=== PATIENT | female | born 1965 | race Two or more races ===

== ENCOUNTER 2024-12-16 14:40 | Outpatient (RCR) | payer OTHER, MEDICAID, SELFPAY ==
--- NOTE | 2024-12-16 21:28 | CTCFLWUP_ITS ---
Patient: KENNETH REED : 1965 Page 3 of 4 FOLLOW UP NOTE DATE OF SERVICE: 12/16/2024 NAME: KENNETH REED ACCOUNT: [id number] : 1965 AGE: 59 INTERVAL HISTORY: She is clinically doing well. Denies any complaints. Denies any cough, chest pain, abdominal pain or leg cramps. Ambulating well. Denies any weight loss or loss of appetite. Has reasonably good energy levels. Since last visit she had CT scan of the chest without contrast which did not show any suspicious nodu les in the lungs as documented below. ONCOLOGY HISTORY: DIAGNOSIS: History of pT2 right-sided renal cell carcinoma. S/p robotic partial right nephrectomy (12/23/2015. 3 mm left lower lobe pulmonary nodule documented on CT scan of the abdomen and pelvis without contras t (09/08/2023) DATE OF DIAGNOSIS: 12/23/2015 STAGE/TNM: Stage 1 clear cell renal carcinoma TREATMENT HISTORY: Care?Plan Start?Date Cycle Day Intent HISTORY OF PRESENT ILLNESS: The patient is a 59-year-old female with following oncology history. 12/23/2015: Ms. Reed had a robotic partial right nephrectomy for renal cell carcinoma. Pathology show ed renal cell carcinoma ET tube, grade 2/4 with negative margins. No lymphovascular invasion. She w as referred to us recently for a follow-up. 09/08/2023: Ms. Reed had CT scan of the abdomen and pelvis without contrast. The CT scan showed a 3 mm pulmonary nodule in the left lower lobe. No metastatic lesions were noted in the abdomen or pelvi s. 05/28/2024: CT scan of the chest without contrast? OTHER MEDICAL HISTORY/CONDITIONS: HTN Gout GERD Hyperlipidemia Arthritis Tubal ligation - 2002 Cholecystectomy - 2004 Back surgery - Fusion T7-8-9 - 2005 Back surgery - Fusion C2-3 - 2015 Partial right nephrectomy - 2016 Left TKA - 2020 FAMILY HISTORY: Cancer?History:?Denies SOCIAL HISTORY: Occupational?History:?Disabled - SNF- [employer] Education?Level:?Completed 9th grade Marital?Status:? 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 allopurinol - 300 mg 1 tab Daily 2. amlodipine - 10 mg 1 tab Daily 3. atorvastatin - 20 mg 1 tab Daily 4. calcitriol - 0.5 mcg 1 Capsule Every other day 5. cetirizine - 10 mg 1 tab Daily 6. magnesium oxide - 400 mg magnesium 2 tab Daily 7. metoprolol succinate - 50 mg 1 tab Daily 8. multivitamin - 1 tab Daily 9. omeprazole - 40 mg 1 Capsule Daily 10. pregabalin - 50 mg 1 Capsule Twice a Day 11. traMADoL - 100 mg 1 tab Daily 12. Vitamin D2 - 1,250 mcg (50,000 unit) 1 Capsule Every 14 Days Medications Last Reconciled by Hali Phan MA on 12/16/2024 ALLERGIES: No Known Drug Allergies REVIEW OF SYSTEMS: A complete 14-point review of systems was performed and is negative except as noted in interval histo ry. PHYSICAL EXAMINATION: VITAL SIGNS: Temperature?98.2, B/P?138/87, Oxygen?Saturation?98% Weight?191?lbs PAIN: 2 - Mild pain ECOG Performance Status: 0 - Asymptomatic and fully active GENERAL APPEARANCE: Appears well, in no apparent distress, appropriately interactive. HEENT: Normocephalic, no temporal wasting, normal conjunctiva, no scleral icterus, normal hearing, li ps without lesions, neck normal range of motion. CARDIOVASCULAR: Not assessed. PULMONARY: Normal respiratory effort, no respiratory distress or use of accessory muscles, speaking i n full sentences, no tachypnea. EXTREMITIES: No pedal edema or cyanosis. SKIN: Normal skin appearance. NEUROLOGIC: Alert and oriented x4. PSHYCHIATRIC: Appropriate affect, mood normal, behavior normal, intact thought and speech. LABORATORY DATA: I have personally reviewed and interpreted each of the patient?s relevant lab tests, abnormal finding s are below: Date ASSESSMENT/PLAN: 1. CT scan of the chest without contrast done on 05/28/2024 did not show any nodules in the lungs as do cumented above.patient is very worried and wants to get scan . will order pet scan to evaluate for an y recurrence . 2. 3 mm left lower lobe pulmonary nodule documented on CT scan of the abdomen and pelvis without cont rast (09/08/2023) 3. History of pT2 right-sided renal cell carcinoma. S/p robotic partial right nephrectomy (12/23/2015 . 1. No specific intervention today. 2. Will see her back in clinic in 6 months with CBC and CMP done and pet scan .. ORDERS: Cbc,cmp,pet scan RETURN TO CLINIC: 6-8 weeks BILLING AND COMPLIANCE: I reviewed external records from providers outside my specialty as summarized above. I spent a total of 50 minutes on this patient?s care on the day of their visit excluding time spent related to any bi lled procedures. This time includes time spent with the patient as well as time spent documenting in the medical record, reviewing patients records and tests, obtaining history, placing orders, communi cating with other healthcare professionals, counseling the patient, family or caregiver, and/or care coordination for the diagnoses above. Electronically Signed by: Jacob Chaney MD T: 9:26 PM CC: PCP: Jonelle Trinh Referring: Jonelle Trinh This document was completed utilizing speech recognition software. Grammatical errors, random word in sertions, pronoun errors, and incomplete sentences are an occasional consequence of this system due t o software limitations, ambient noise, and hardware issues. Any formal questions or concerns about th e content, text or information contained within the body of this dictation should be directly address ed to the provider for clarification.
== END 2024-12-27 23:59 | disposition home or self-care (01) ==
LOC: SCTC 14:40
PROVIDERS: PCP Nurse Practitioner Family; Referring Provider Nurse Practitioner Family; Visit Provider Internal Medicine Hematology & Oncology
DX: Z08 Encounter for follow-up examination after completed treatment for malignant neoplasm (principal); Z85.528 Personal history of other malignant neoplasm of kidney; Z90.5 Acquired absence of kidney
CPT/HCPCS: Q3014

== ENCOUNTER → 2025-01-16 | Outpatient (CLI) | payer OTHER, MEDICAID, SELFPAY ==
--- NOTE | 2025-01-16 08:00 | XR_ITS ---
EXAMINATION: PET/CT FUSION SKULL TO THIGH EXAM DATE AND TIME: January 16, [address] abdomen pelvis September 08, 2023 INDICATIONS: Diagnosis renal cell carcinoma restaging post treatment CTDI:vol (mGy) 7.19 DLP: (mGycm) 657.18 PROCEDURE: 15.73 mCi FDG was administered intravenously To allow for distribution and uptake of radiotracer, the patient was allowed to rest quietly in a shielded room. Imaging was performed on an integrated 16-slice PET/CT scanner, with scanning from the skull base to the mid thigh. Serum blood glucose at the time of the injection was measured 101 mg/dL. CT scanning was performed without oral or intravenous contrast material. FINDINGS: Head and Neck: There is no bonnie hypermetabolism in the neck. The visualized portions of the brain are normal in appearance on CT. Chest: There is no bonnie hypermetabolism in the chest. There are no pulmonary nodules. Abdomen and Pelvis: There is no bonnie hypermetabolism in retroperitoneal or pelvic chains. The spleen is normal in size and FDG avidity. Musculoskeletal: Marrow uptake is within normal range. IMPRESSION: No interval metastatic disease
== END | disposition home or self-care (01) ==
LOC: CDIM 07:39
PROVIDERS: PCP Nurse Practitioner Family; Referring Provider Internal Medicine Hematology & Oncology; Visit Provider Internal Medicine Hematology & Oncology
DX: C64.9 Malignant neoplasm of unspecified kidney, except renal pelvis (principal)
CPT/HCPCS: 78815; A9552

== ENCOUNTER → 2025-01-21 | Outpatient (CLI) | payer OTHER, MEDICAID, SELFPAY ==
--- NOTE | 2025-01-21 13:20 | XR_ITS ---
Examination: Bone densitometry Date and time of exam:January 21, 2025 1338 hrs. Indications: Menopause age 49, history kidney cancer vitamin D to 3 years Technique: Lumbar spine and hip total bone mineralization values of an calculated. Peak reference and age match control results have been displayed. Findings: Lumbar spine total bone mineralization is1.000 gm/cm2. This is 0.4 standard deviations below peak reference. This is 0.8 standard deviations above age-matched controls. Hip total bone mineralization is 0.916 gm/cm2 This is 0.3 standard deviations below peak reference. This is 0.5 standard deviations above age-matched controls Impression: There is normal mineralization based on lumbar spine measurements. There is osteopenia based on hip measurements Lumbar mineralization is decreased 2.6% compared with December 04, 2019 Hip mineralization is decreased 0.8% compared with December 04, 2019
== END | disposition home or self-care (01) ==
PROVIDERS: PCP Nurse Practitioner Family; Referring Provider Internal Medicine Hematology & Oncology; Visit Provider Internal Medicine Hematology & Oncology
DX: M85.88 Other specified disorders of bone density and structure, other site (principal); C64.9 Malignant neoplasm of unspecified kidney, except renal pelvis
CPT/HCPCS: 77080

== ENCOUNTER 2025-02-06 15:10 | Outpatient (RCR) | payer OTHER, MEDICAID, SELFPAY ==
--- NOTE | 2025-03-02 19:19 | CTCFLWUP_ITS ---
Patient: KENNETH REED : 1965 Page 3 of 4 FOLLOW UP NOTE DATE OF SERVICE: 02/06/2025 NAME: KENNETH REED ACCOUNT: [id number] : 1965 AGE: 59 INTERVAL HISTORY: She is clinically doing well. Denies any complaints. Denies any cough, chest pain, abdominal pain or leg cramps. Ambulating well. Denies any weight loss or loss of appetite. Has reasonably good energy levels. Since last visit she had CT scan of the chest without contrast which did not show any suspicious nodules in the lungs as documented below. ONCOLOGY HISTORY: DIAGNOSIS: History of pT2 right-sided renal cell carcinoma. S/p robotic partial right nephrectomy (12/23/2015. 3 mm left lower lobe pulmonary nodule documented on CT scan of the abdomen and pelvis without contrast (09/08/2023) DATE OF DIAGNOSIS: 12/23/2015 STAGE/TNM: Stage 1 clear cell renal carcinoma TREATMENT HISTORY: Care?Plan Start?Date Cycle Day Intent PROLia?60mg?every?6?months 02/27/2025 1 180 Palliative HISTORY OF PRESENT ILLNESS: The patient is a 59-year-old female with following oncology history. 12/23/2015: Ms. Reed had a robotic partial right nephrectomy for renal cell carcinoma. Pathology showed renal cell carcinoma ET tube, grade 2/4 with negative margins. No lymphovascular invasion. She was referred to us recently for a follow-up. 09/08/2023: Ms. Reed had CT scan of the abdomen and pelvis without contrast. The CT scan showed a 3 mm pulmonary nodule in the left lower lobe. No metastatic lesions were noted in the abdomen or pelvis. 05/28/2024: CT scan of the chest without contrast? OTHER MEDICAL HISTORY/CONDITIONS: HTN Gout GERD Hyperlipidemia Arthritis Tubal ligation - 2002 Cholecystectomy - 2004 Back surgery - Fusion T7-8-9 - 2005 Back surgery - Fusion C2-3 - 2015 Partial right nephrectomy - 2016 Left TKA - 2020 FAMILY HISTORY: Cancer?History:?Denies SOCIAL HISTORY: Occupational?History:?Disabled - SNF- [employer] Education?Level:?Completed 9th grade Marital?Status:? 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 allopurinol - 300 mg 1 tab Daily 2. amlodipine - 10 mg 1 tab Daily 3. atorvastatin - 20 mg 1 tab Daily 4. calcitriol - 0.5 mcg 1 Capsule Every other day 5. cetirizine - 10 mg 1 tab Daily 6. magnesium oxide - 400 mg magnesium 2 tab Daily 7. metoprolol succinate - 50 mg 1 tab Daily 8. multivitamin - 1 tab Daily 9. omeprazole - 40 mg 1 Capsule Daily 10. pregabalin - 50 mg 1 Capsule Twice a Day 11. traMADoL - 100 mg 1 tab Daily 12. Vitamin D2 - 1,250 mcg (50,000 unit) 1 Capsule Every 14 Days Medications Last Reconciled by Hali Phan MA on 02/06/2025 ALLERGIES: No Known Drug Allergies REVIEW OF SYSTEMS: A complete 14-point review of systems was performed and is negative except as noted in interval history. PHYSICAL EXAMINATION: VITAL SIGNS: Temperature?98.2, B/P?135/76, Oxygen?Saturation?99% Weight?192?lbs PAIN: 7 - Between severe and very severe pain GENERAL APPEARANCE: Appears well, in no apparent distress, appropriately interactive. HEENT: Normocephalic, no temporal wasting, normal conjunctiva, no scleral icterus, normal hearing, lips without lesions, neck normal range of motion. CARDIOVASCULAR: Not assessed. PULMONARY: Normal respiratory effort, no respiratory distress or use of accessory muscles, speaking in full sentences, no tachypnea. EXTREMITIES: No pedal edema or cyanosis. SKIN: Normal skin appearance. NEUROLOGIC: Alert and oriented x4. PSHYCHIATRIC: Appropriate affect, mood normal, behavior normal, intact thought and speech. LABORATORY DATA: I have personally reviewed and interpreted each of the patient?s relevant lab tests, abnormal findings are below: Date ASSESSMENT/PLAN: 1. CT scan of the chest without contrast done on 05/28/2024 did not show any nodules in the lungs as documented above.patient is very worried and wants to get scan . will order pet scan to evaluate for any recurrence . 2. 3 mm left lower lobe pulmonary nodule documented on CT scan of the abdomen and pelvis without contrast (09/08/2023) 3. History of pT2 right-sided renal cell carcinoma. S/p robotic partial right nephrectomy (12/23/2015. 1. Pet scan is negative 2. Will see her back in clinic in 6 months with CBC and CMP done and pet scan .. 3. Bone desity shows drop in her bone density 4. Will start onprolia after dental clearence ORDERS: Order # Description [id number] Basic Metabolic Panel RETURN TO CLINIC: 6 months BILLING AND COMPLIANCE: I reviewed external records from providers outside my specialty as summarized above. I spent a total of 50 minutes on this patient?s care on the day of their visit excluding time spent related to any billed procedures. This time includes time spent with the patient as well as time spent documenting in the medical record, reviewing patients records and tests, obtaining history, placing orders, communicating with other healthcare professionals, counseling the patient, family or caregiver, and/or care coordination for the diagnoses above. Electronically Signed by: Jacob Chaney MD T: 7:17 PM CC: PCP: Mikel Orellana Referring: Mikel Orellana This document was completed utilizing speech recognition software. Grammatical errors, random word insertions, pronoun errors, and incomplete sentences are an occasional consequence of this system due to software limitations, ambient noise, and hardware issues. Any formal questions or concerns about the content, text or information contained within the body of this dictation should be directly addressed to the provider for clarification.
== END 2025-02-24 23:59 | disposition home or self-care (01) ==
LOC: SCTC 15:10
PROVIDERS: Referring Provider Physical Medicine & Rehabilitation Pain Medicine; Visit Provider Internal Medicine Hematology & Oncology
DX: Z08 Encounter for follow-up examination after completed treatment for malignant neoplasm (principal); Z85.528 Personal history of other malignant neoplasm of kidney; Z90.5 Acquired absence of kidney
CPT/HCPCS: 99212; G0463

== ENCOUNTER 2025-02-21 13:30 | Outpatient (RCR) | payer OTHER, MEDICAID, SELFPAY ==
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
--- NOTE | 2025-02-13 17:26 | PT.ODAYNRPT ---
PT Outpatient Daily Note OP Daily Note Outpatient Physical Therapy Treatment Date: 02/13/25 Visit Reasons: Pain in left shoulder Subjective: Same as time of evaluation Objective: See F/S for therex MT: STM of B UT's and paraspinals x7' with [place] Assessment: High tone of B upper traps and moderate TTP. Good demo of cervical retractions Plan: Continue per POC Length of Time (minutes) of Treatment: 30 Minutes Procedure Charges Therapeutic Exercise 30 minutes: Yes
--- NOTE | 2025-02-21 14:27 | PT.ODAYNRPT ---
PT Outpatient Daily Note OP Daily Note Outpatient Physical Therapy Treatment Date: 02/21/25 Visit Reasons: Pain in left shoulder Subjective: Pt c/o neck pain and tension. Objective: Please see flow sheet for there x list. Assessment: Pt demonstrates upper trap recruitment and increase thoracic kyphosis in sitting. Worked on sitting posture and educated pt to relax shoulder and be more aware of position when static, pt agreed. Plan: Continue with POC. Length of Time (minutes) of Treatment: 30 Minutes Procedure Charges Therapeutic Exercise 30 minutes: Yes
== END 2025-02-24 23:59 | disposition home or self-care (01) ==
LOC: CPTX 13:30
PROVIDERS: PCP Physical Medicine & Rehabilitation Pain Medicine; Referring Provider Physical Medicine & Rehabilitation Pain Medicine; Visit Provider Physical Medicine & Rehabilitation Pain Medicine
DX: M25.512 Pain in left shoulder (principal); M25.511 Pain in right shoulder; M54.2 Cervicalgia
CPT/HCPCS: 97110; 97162

== ENCOUNTER 2025-02-26 12:54 | Outpatient (RCR) | payer OTHER, MEDICAID, SELFPAY ==
--- NOTE | 2025-02-26 13:35 | PT.ODAYNRPT ---
PT Outpatient Daily Note OP Daily Note Outpatient Physical Therapy Treatment Date: 02/26/25 Visit Reasons: left shoulder pain Subjective: HIgh pain today in the neck and L side of upper back Objective: See F/S for therex MT: STM L side of upper T/S and upper trap x7' Assessment: High tissue irritability with most movements today limited therex tolerance Plan: Continue per POC Length of Time (minutes) of Treatment: 30 Minutes Procedure Charges Therapeutic Exercise 30 minutes: Yes
== END 2025-03-26 23:59 | disposition home or self-care (01) ==
LOC: CPTX 12:54
PROVIDERS: PCP Physical Medicine & Rehabilitation Pain Medicine; Referring Provider Physical Medicine & Rehabilitation Pain Medicine; Visit Provider Physical Medicine & Rehabilitation Pain Medicine
DX: M25.512 Pain in left shoulder (principal); M25.511 Pain in right shoulder; M54.2 Cervicalgia
CPT/HCPCS: 97110

== ENCOUNTER 2025-02-27 14:31 | Outpatient (RCR) | payer OTHER, MEDICAID, SELFPAY | END 2025-03-26 23:59 | disposition home or self-care (01) | LOC: SCTC 14:31 | PROVIDERS: PCP Physical Medicine & Rehabilitation Pain Medicine; Referring Provider Physical Medicine & Rehabilitation Pain Medicine; Visit Provider Internal Medicine Hematology & Oncology | DX: C64.1 Malignant neoplasm of right kidney, except renal pelvis (principal); M85.88 Other specified disorders of bone density and structure, other site; Z90.5 Acquired absence of kidney | CPT/HCPCS: J0897 ==

== ENCOUNTER 2025-04-07 14:00 | Outpatient (RCR) | payer OTHER, MEDICAID, SELFPAY ==
--- NOTE | 2025-04-02 16:09 | PT.ODAYNRPT ---
PT Outpatient Daily Note OP Daily Note Outpatient Physical Therapy Treatment Date: 04/02/25 Visit Reasons: left shoulder pain Subjective: Pt c/o pain today in the neck and L side of upper back Objective: See F/S for therex MT: STM L side of upper T/S and upper trap x7' Assessment: Moderate tissue irritability with most movements today limited therex tolerance Plan: Continue per POC Length of Time (minutes) of Treatment: 30 Minutes Procedure Charges Therapeutic Exercise 30 minutes: Yes
--- NOTE | 2025-04-07 14:38 | PT.ODAYNRPT ---
PT Outpatient Daily Note OP Daily Note Outpatient Physical Therapy Treatment Date: 04/07/25 Visit Reasons: left shoulder pain Subjective: Pt c/o pain less today in the neck and L side of upper back Objective: See F/S for therex and modalities Assessment: Moderate tissue irritability with most movements today and limited supine tolerance due to upper thoracic kyphosis Plan: Continue per POC Length of Time (minutes) of Treatment: 30 Minutes Procedure Charges Therapeutic Exercise 30 minutes: Yes
== END 2025-04-26 23:59 | disposition home or self-care (01) ==
LOC: CPTX 14:00
PROVIDERS: PCP Physical Medicine & Rehabilitation Pain Medicine; Referring Provider Physical Medicine & Rehabilitation Pain Medicine; Visit Provider Physical Medicine & Rehabilitation Pain Medicine
DX: M25.512 Pain in left shoulder (principal); M25.511 Pain in right shoulder; M54.2 Cervicalgia; Z98.1 Arthrodesis status
CPT/HCPCS: 97110

== ENCOUNTER → 2025-04-10 | Outpatient (BNVA) | payer OTHER, MEDICAID, SELFPAY | END | disposition home or self-care (01) | PROVIDERS: PCP Registered Nurse Community Health; Referring Provider Registered Nurse Community Health; Visit Provider Urology | DX: C64.1 Malignant neoplasm of right kidney, except renal pelvis (principal); Q60.3 Renal hypoplasia, unilateral; I12.9 Hypertensive chronic kidney disease with stage 1 through stage 4 chronic kidney disease, or unspecified chronic kidney disease; N18.30 Chronic kidney disease, stage 3 unspecified; E66.9 Obesity, unspecified; Z68.32 Body mass index [BMI] 32.0-32.9, adult; E78.00 Pure hypercholesterolemia, unspecified; K21.9 Gastro-esophageal reflux disease without esophagitis; E03.9 Hypothyroidism, unspecified | CPT/HCPCS: 81003; 99212; G0463 ==

== ENCOUNTER → 2025-05-29 | Outpatient (CLI) | payer OTHER, MEDICAID, SELFPAY ==
--- NOTE | 2025-05-29 08:15 | XR_ITS ---
Examination: Screening digital mammography, bilateral Computer aided detection 3-D breast Tomosynthesis, bilateral Date and time of exam: May 29, 2025 0825 hours Compared to mammograms dating to April 14, 2016 Indication: Screening Technique: Nonmagnified MLO, CC views of the breasts to been obtained, reconstructed from 3-D Tomosynthesis images. R2 computer aided detection program utilized for evaluation of suspicious masses and/or abnormal calcifications. 3-D Tomosynthesis images obtained. Findings: Scattered areas of fibroglandular density. 5 mm nodule upper outer right breast anterior depth Benign calcifications Impression: BI-RADS Category 0: Incomplete: Need additional imaging evaluation Recommend follow-up spot tomographic views of 5 mm nodule upper outer right breast as well as right breast sonography to complete the workup
== END | disposition home or self-care (01) ==
LOC: CDIM 08:11
PROVIDERS: Referring Provider Obstetrics & Gynecology; Visit Provider Obstetrics & Gynecology
DX: Z12.31 Encounter for screening mammogram for malignant neoplasm of breast (principal); N63.11 Unspecified lump in the right breast, upper outer quadrant; R92.1 Mammographic calcification found on diagnostic imaging of breast
CPT/HCPCS: 77063; 77067

== ENCOUNTER → 2025-07-02 | Outpatient (CLI) | payer OTHER, MEDICAID, SELFPAY ==
--- NOTE | 2025-07-02 08:00 | XR_ITS ---
Examination: Breast ultrasound, unilateral, right Date and time of exam: July 02, 2025 0812 hours INDICATIONS: Mammogram May 29, 2025 5 mm nodule upper outer right breast Technique: Real-time dawson scale ultrasonographic imaging performed right breast including all 4 quadrants as well as nipple retroareolar and axillary region. Findings: No cystic or solid mass IMPRESSION: BI-RADS Category 1: Negative study
--- NOTE | 2025-07-02 08:30 | XR_ITS ---
Examination: Diagnostic digital mammography, unilateral, right Computer aided detection 3-D breast Tomosynthesis, unilateral Date and time of exam: July 02, 2025 0819 hours INDICATIONS: Mammogram May 29, 2025 5 mm nodule upper outer right breast Technique: Nonmagnified MLO, CC views of the right breast have been obtained, reconstructed from 3-D Tomosynthesis images. R2 computer aided detection program utilized for evaluation of suspicious masses and/or abnormal calcifications. 3-D Tomosynthesis images obtained. Findings: Scattered areas of fibroglandular density. No suspicious nodule is noted on the spot compression views Impression: BI-RADS category 2: Benign findings Return to yearly follow-up mammography
== END | disposition home or self-care (01) ==
PROVIDERS: PCP Student in an Organized Health Care Education/Training Program; Referring Provider Obstetrics & Gynecology; Visit Provider Obstetrics & Gynecology
DX: R92.321 Mammographic fibroglandular density, right breast (principal)
CPT/HCPCS: 76641; 77061; 77065; G0279

== ENCOUNTER 2025-09-01 14:40 | Outpatient (RCR) | payer OTHER, MEDICAID, SELFPAY | END 2025-09-26 23:59 | disposition home or self-care (01) | LOC: SCTC 14:40 | PROVIDERS: PCP Student in an Organized Health Care Education/Training Program; Referring Provider Student in an Organized Health Care Education/Training Program; Visit Provider Radiology Therapeutic Radiology | DX: Z08 Encounter for follow-up examination after completed treatment for malignant neoplasm (principal); Z85.528 Personal history of other malignant neoplasm of kidney; Z90.5 Acquired absence of kidney; M85.80 Other specified disorders of bone density and structure, unspecified site | CPT/HCPCS: 96372; 99212; J0897; G0463 ==